=== PATIENT | male | born 1990 | race Caucasian/White ===

== ENCOUNTER 2020-03-08 08:52 | Outpatient (REF) | payer MEDICAID, SELFPAY ==
[2020-03-10 07:56] LABS: SARS COV2 IgG Negative (Negative)
== END 2020-03-08 08:53 | disposition home or self-care (01) ==
LOC: HO.LAB 08:52
PROVIDERS: Absent Provider Physical Medicine & Rehabilitation; Visit Provider Internal Medicine
DX: Z20.828 Contact with and (suspected) exposure to other viral communicable diseases (principal)
CPT/HCPCS: 86769; C9803; U0003